=== PATIENT | male | born 1960 | race Caucasian/White ===

== ENCOUNTER 2018-10-19 08:24 | Day surgery (SDC) | payer OTHER ==
[~2018-10-19] VITALS: Ht 182.9 cm; Wt 88.8 kg
[~2018-10-19 08:24] MED LIST: DIAZ10 PO; HYDACE5 PO; NAPR550 PO; OXYC5 PO; RXHYDMOR2 PO
--- NOTE | 2018-10-19 09:10 | NUR ---
Ambulatory in Day Surgery History, Chart, Medications and Allergies reviewed before start of procedure.Patient confirms NPO status and agrees with scheduled surgery. Patient states colon prep results clear. STUDENT RN ASSISTING IN PREOPERATIVE CARE. AGREE WITH HER CHARTING AND CARE
--- NOTE | 2018-10-19 10:24 | NUR ---
10/19/18 Nery Freire History, Chart, Medications and Allergies reviewed before start of procedure. Patient confirms NPO status and agrees with scheduled surgery. PATIENT DETERMINED TO BE ASA APPROPRIATE FOR PROPOFOL SEDATION PRIOR TO START OF PROCEDURE BY DR. BROWN. 3-LEAD EKG REVIEWED WITH PHYSICIAN PRIOR TO START OF PROCEDURE. MONITOR INTACT WITH CONTINUOUS PULSE OXIMETRY AND INTERMITTENT BP.
== END 2018-10-19 22:45 | disposition home or self-care (01) ==
LOC: ORSCMMR 08:24 → ORD 09:30 → ORSCMMR 22:45
PROVIDERS: Internal Medicine Gastroenterology
PROC: 0DBM8ZX Excision of Descending Colon, Via Natural or Artificial Opening Endoscopic, Diagnostic (ICD-10-PCS; principal; 2018-10-19 09:30)
PROC: 0DBN8ZX Excision of Sigmoid Colon, Via Natural or Artificial Opening Endoscopic, Diagnostic (ICD-10-PCS; principal; 2018-10-19 09:30)
DX: Z12.11 Encounter for screening for malignant neoplasm of colon (principal); D12.4 Benign neoplasm of descending colon; K63.5 Polyp of colon; I10 Essential (primary) hypertension
CPT/HCPCS: 88305; J2704; J7120

== ENCOUNTER 2019-02-28 14:56 | Inpatient (IN) | payer OTHER ==
[~2019-02-28] VITALS: Ht 182.9 cm; Wt 86.7 kg
[2019-02-28 15:42] LABS: BASOPHILS ABSOLUTE AUTO 0.09 K/mm3 (0.00-0.23); BASOPHILS PERCENT AUTO 1 % (0-2); EOSINOPHILS ABSOLUTE AUTO 0.13 K/mm3 (0.00-0.68); EOSINOPHILS PERCENT AUTO 1 % (0-6); Hematocrit 49.4 % (37.0-53.0); Hemoglobin 16.6 g/dL (13.5-17.5); IMMATURE GRAN ABSOLUTE AUTO 0.02 K/mm3 (0.00-0.10); IMMATURE GRAN PERCENT AUTO 0 % (0-1); LYMPHOCYTES PERCENT AUTO 36 % (21-46); MONOCYTES PERCENT AUTO 8 % (4-13); Mean Corpuscular HGB 31.1 pg (26.0-34.0); Mean Corpuscular HGB Conc 33.6 g/dL (31.5-36.5); Mean Corpuscular Volume 93 fL (80-100); Mean Platelet Volume 10.1 fL (9.1-12.4); NEUTROPHILS ABSOLUTE AUTO 5.21 K/mm3 (1.96-9.15); NEUTROPHILS PERCENT AUTO 54 % (41-73); Platelet Count 241 K/mm3 (150-400); RDW Coefficient Variation 13.4 % (11.7-14.2); RDW Standard Deviation 45.9 fL (35.1-46.3); Red Blood Cell Count 5.34 M/mm3 (4.30-5.90); White Blood Cell Count 9.75 K/mm3 (4.00-11.30)
[2019-02-28 16:03] LABS: Alanine Aminotransfer (ALT/SGP 36 U/L (12-78); Albumin/Globulin Ratio 1.1 (0.8-1.8); Alk Phos 77 U/L (50-136); Anion Gap 6 mmol/L (6-16); Aspartate Aminotrans (AST/SGOT 16 U/L (12-37); Bilirubin, Total 0.5 mg/dL (0.1-1.0); Blood Urea Nitrogen 23 mg/dL (8-24); Bun/Creatinine Ratio 22.1 (12.0-20.0); CO2, Blood 23 mmol/L (21-32); Calcium, Blood 9.3 mg/dL (8.5-10.1); Chloride, Blood 112 mmol/L (98-108); Creatinine, Blood 1.04 mg/dL (0.60-1.20); Globulin, Blood 3.5 g/dL (2.2-4.0); Glomerular Filtration Rate >60 (60-); Glucose, Blood 106 mg/dL (70-99); Potassium, Blood 4.6 mmol/L (3.5-5.5); Sodium, Blood 141 mmol/L (136-145); Total Protein, Blood 7.5 g/dL (6.4-8.2); Troponin I 0.044 ng/mL (0.000-0.040)
--- NOTE | 2019-02-28 21:03 | NUR ---
PCU ADMIT PT BROUGHT TO PCU RM 05 BY KIRA FROM THE ER @1945. PT ABLE TO STAND AND INDEPENDENTLY AMBULATE FROM [facility] TO PCU BED. PT A&O X4. MONITOR SHOWS AFIB, HR 130'S W/ RANGE OF 110-175. PT BROUGHT TO UNIT W/ CARDIZEM GTT INFUSING @ 10. WILL CONTINUE TO MONITOR AND PROVIDE CARE.
--- NOTE | 2019-03-01 04:22 | NUR ---
SHIFT SUMMARY PT A&O X4. VSS. MONITOR SHOWS AFIB, HR 90-120 W/ CARDIZEM GTT @ 10 ML/HR. PT NOT SLEEPING THIS SHIFT W/ REPORTS OF BREATHING CONCERNS. LUNG SOUNDS CLEAR. SPO2 > 92% ON RA. RR EVEN AND UNLABORED. PT REPORTS "VOMITING LUNG FLUID" IN WHICH PT THEN REPORTS CLEAR MUCUS IN TISSUES W/ NO ACTUAL EMESIS. PT SITTING UP IN BED. SLEEP AID INTERVENTIONS SUCH DIMMING LIGHTS, PLAYING SOFT MUSIC, OR HOT TEA REFUSED BY PT W/ PT STATING "NO IT'S OKAY." TRACE EDEMA TO BILAT FEET. ECHO TO BE DONE TODAY. WILL CONTINUE TO MONITOR AND PROVIDE CARE UNTIL REPORT OFF TO DAY SHIFT RN.
--- NOTE | 2019-03-01 18:14 | NUR ---
SHIFT SUMMARY PT A&Ox4. CALM AND COOPERATIVE WITH CARE. PT RESTING IN BED DURING SHIFT. UP IND IN ROOM. PT DENIES PAIN, SOB AND NAUSEA DURING SHIFT. PER TELE AFIB AVERAGING 100'S, PT ON CARDIZEM GTT AT 10MG/HR AND STARTED ON ORAL CARDIZEM THIS AFTERNOON. ELEVATED TROPS, TRENDING DOWN THIS AFTERNOON. CARDIOLOGY CONSULTED, DR MORGAN SPOKE WITH DR ROMERO. PT DENIES SOB, > SPO2 94%. PT DENIES NAUSEA, HAS GOOD APPETITE. PT RECEIVING IV LAXIS. HR ELEVATED. OTHER VSS. NO OTHER ACUTE CHANGES NOTED DURING SHIFT. WILL CONTINUE TO MONITOR UNTIL REPORT GIVEN TO ONCOMING RN.
--- NOTE | 2019-03-01 20:52 | NUR ---
PATIENT HR CONTINUES TO BE 110-120'S INCREASED DILTIAZAM DRIP TO 15MG/HR. BP STABLE. PATIENT DENIES ANY PAIN OR NEEDS.
--- NOTE | 2019-03-02 05:37 | NUR ---
PHARMACIST HAZEL CALLED AND ASKED THAT I DOUBLE VERIFIED DILTIAZEM DRIP. VERIFIED WITH PHARMACIST OVER PHONE AND WITH DINAH KENNEDY IN PERSON THAT LABS MATCHED FOR PATIENT SAFETY.
--- NOTE | 2019-03-02 05:39 | NUR ---
PATIENT ON DILTIAZEM AT 10 MG NOW DUE TO SLIGHT DROP IN BP. PATIENT TOLERATING WELL. HR 90-110'S. PATIENT NPO. DENIES ANY PAIN OR NEEDS. CALL LIGHT REMAINS WITH IN REACH. PATIENT MOVES AROUND INDEPENDENT IN BED.
--- NOTE | 2019-03-02 11:10 | NUR ---
CALLED DR MCCABE TO CLARIFY HEPARIN ORDERS, NO BOLUS NEEDED. WILL CONTINUE TO MONITOR.
[2019-03-02 11:51] LABS: International Normalized Ratio 1.08; Prothrombin Time Results 11.4 Sec (9.7-11.5)
--- NOTE | 2019-03-02 16:05 | NUR ---
PT STARTED ON TOPROL XL PER ORDERS AT 1400, STOPPED CARDIZEM AT 1600 PER ORDERS. TELE AFIB 90-100, WILL CONTINUE TO MONITOR.
--- NOTE | 2019-03-02 18:36 | NUR ---
SHIFT SUMMARY PT A&Ox4. CALM AND COOPERATIVE WITH CARE. PT RESTING IN BED DURING SHIFT. UP TO BATHROOM IND. PT DENIES PAIN, SOB AND NAUSEA T/O SHIFT. SPO2 >92% ON RA. DR COTTO AT BEDSIDE THIS AM. NEW ORDER TO START HEPARIN DRIP WITH NO BOLUS PER DR MORGAN, ADMINISTRATION DELAY WITH ISSUE IN STARTING NEW IV. PT STARTED ON TOPROL XL PO THIS AFTERNOON, PER ORDERS CARDIZEM GTT D/C 2 HOURS AFTER TOPROL XL ADMINISTERED. TELE IN AFIB AVERAGING 90-100'S. VSS. NO OTHER ACUTE CHANGES NOTED. PLAN TO BE NPO AT MIDNIGHT FOR ANGIO, GABBY AND CARDIOVERSION TOMORROW. WILL CONTINUE TO MONITOR UNTIL REPORT GIVEN TO ONCOMING TO RN.
--- NOTE | 2019-03-02 22:47 | NUR ---
UPDATE PATIENT RESTING IN BED WATCHING TV AND TALKING ON THE PHONE. PATIENT DENIES ANY CHEST PAIN OR PAIN AT THIS TIME. PATIENT AWARE HE IS TO BE NPO AT 2330 FOR PROCEDURE IN THE AM. HEPARIN GTT RUNNING PER ORDERS. WILL CONTINUE TO MONITOR PATIENT.
[2019-03-03 04:13] LABS: BASOPHILS ABSOLUTE AUTO 0.11 K/mm3 (0.00-0.23); BASOPHILS PERCENT AUTO 1 % (0-2); EOSINOPHILS PERCENT AUTO 2 % (0-6); Hematocrit 46.4 % (37.0-53.0); Hemoglobin 15.7 g/dL (13.5-17.5); IMMATURE GRAN ABSOLUTE AUTO 0.03 K/mm3 (0.00-0.10); IMMATURE GRAN PERCENT AUTO 0 % (0-1); LYMPHOCYTES ABSOLUTE AUTO 4.48 K/mm3 (0.84-5.20); LYMPHOCYTES PERCENT AUTO 37 % (21-46); MONOCYTES ABSOLUTE AUTO 1.15 K/mm3 (0.16-1.47); MONOCYTES PERCENT AUTO 9 % (4-13); Mean Corpuscular HGB 30.8 pg (26.0-34.0); Mean Corpuscular HGB Conc 33.8 g/dL (31.5-36.5); Mean Corpuscular Volume 91 fL (80-100); Mean Platelet Volume 10.4 fL (9.1-12.4); NEUTROPHILS PERCENT AUTO 51 % (41-73); Platelet Count 220 K/mm3 (150-400); RDW Coefficient Variation 13.2 % (11.7-14.2); White Blood Cell Count 12.17 K/mm3 (4.00-11.30)
[2019-03-03 04:46] LABS: Anion Gap 6 mmol/L (6-16); Blood Urea Nitrogen 29 mg/dL (8-24); Bun/Creatinine Ratio 28.7 (12.0-20.0); CHOL/HDL RATIO 3.1; CO2, Blood 27 mmol/L (21-32); Calcium, Blood 8.8 mg/dL (8.5-10.1); Chloride, Blood 106 mmol/L (98-108); Cholesterol 118 mg/dL (50-200); Creatinine, Blood 1.01 mg/dL (0.60-1.20); Glomerular Filtration Rate >60 (60-); Glucose, Blood 101 mg/dL (70-99); HDL Cholesterol 38 mg/dL (>39); LDL/HDL RATIO 1.7; Low Density Lipoprotein Chol 65 mg/dL (0-110); Magnesium, Blood 1.9 mg/dL (1.6-2.4); Potassium, Blood 4.1 mmol/L (3.5-5.5); Sodium, Blood 139 mmol/L (136-145); Triglycerides 74 mg/dL (30-160); Very Low Density Lipoprot Chol 14 mg/dL (6-32)
--- NOTE | 2019-03-03 06:46 | NUR ---
UPDATE PATIENT'S HEART RATE STARTING TO TREND IN THE 120'S TOUCHING UP TO THE 130'S. DR CALVO AWARE AND ORDERS RECIEVED.
--- NOTE | 2019-03-03 06:48 | NUR ---
SHIFT SUMMARY PATIENT PLEASENT AND COOPERATIVE THROUGHOUT THE NIGHT. PATIENT INDEPENDENT IN ROOM. PATIENT APPEARED TO SLEEP WELL THROUGHOUT THE NIGHT. PATIENT'S AT APPROX 0400 PATIENT'S HEART RATE STARTED TO TOUCH UP TO THE ONE-TEENS. NOW PATIENT'S HEART RATE IN THE 120'S TOUCHING UP TO THE 130'S. DR AWARE. PATIENT CURRENTLY APPEARS TO BE SLEEPING WELL. HEPARIN GTT RUNNING PER ORDERS. WILL CONTINUE TO MONITOR PATIENT AND REPORT TO ONCOMING RN.
--- NOTE | 2019-03-03 07:46 | NUR ---
NURSING PCU DAYSHIFT: Assumed care of pt at approx 0700. A/O, pleasant, cooperative w/care. Denies any pain/discomfort at rest. Skin is intact w/no breakdown noted. Ambulates independently and w/o difficulty. Tele in place, afib w/HR 110-120 at rest and 140's while awake, no c/o CP/pressure, BP stable, no noted edema. L/S cta t/o, O2 sat upper 90's on RA, denies dyspnea, no noted cough. Abd SNT, BT+, voiding w/o difficulty per pt. PIV x2, hep gtt infusing at 16u/kg/hr at start of shift. HC staff at bedside to xfer to HC for planned procedure of aniogram, GABBY, and possible cardioversion. Pt denied any questions/needs at time of xfer, no s/s of acute distress at that time. Awaiting pt return to unit.
--- NOTE | 2019-03-03 17:35 | NUR ---
NURSING PCU DAYSHIFT SUMMARY: Pt to HC for for angio, GABBY, and cardioversion this a.m. Returned to room post procedure, recovered as per protocol. R radial site w/TR band and wrist board in place upon arrival. Site remained stable w/no bleed or hematoma noted t/o recovery. TR band removed and tegaderm placed this afternoon. Pt remains NSR w/no c/o CP/pressure. Noted ST segment elevation w/T wave depression, television anchor aware of current rhythm, post procedure EKG completed in HC. Family at bedside intermittently t/o shift. Update provided, plan of care discussed. Pt and family deny any questions/needs, cont to monitor until rpt is given to NOC RN.
[2019-03-04 04:18] LABS: BASOPHILS ABSOLUTE AUTO 0.09 K/mm3 (0.00-0.23); BASOPHILS PERCENT AUTO 1 % (0-2); EOSINOPHILS ABSOLUTE AUTO 0.26 K/mm3 (0.00-0.68); EOSINOPHILS PERCENT AUTO 2 % (0-6); Hematocrit 45.9 % (37.0-53.0); Hemoglobin 15.6 g/dL (13.5-17.5); IMMATURE GRAN ABSOLUTE AUTO 0.02 K/mm3 (0.00-0.10); IMMATURE GRAN PERCENT AUTO 0 % (0-1); LYMPHOCYTES ABSOLUTE AUTO 4.65 K/mm3 (0.84-5.20); LYMPHOCYTES PERCENT AUTO 41 % (21-46); MONOCYTES ABSOLUTE AUTO 0.98 K/mm3 (0.16-1.47); MONOCYTES PERCENT AUTO 9 % (4-13); Mean Corpuscular HGB 30.6 pg (26.0-34.0); Mean Corpuscular Volume 90 fL (80-100); Mean Platelet Volume 11.2 fL (9.1-12.4); NEUTROPHILS ABSOLUTE AUTO 5.25 K/mm3 (1.96-9.15); NEUTROPHILS PERCENT AUTO 47 % (41-73); Platelet Count 212 K/mm3 (150-400); RDW Coefficient Variation 13.2 % (11.7-14.2); RDW Standard Deviation 44.2 fL (35.1-46.3); Red Blood Cell Count 5.09 M/mm3 (4.30-5.90); White Blood Cell Count 11.25 K/mm3 (4.00-11.30)
[2019-03-04 04:34] LABS: Anion Gap 7 mmol/L (6-16); Blood Urea Nitrogen 31 mg/dL (8-24); Bun/Creatinine Ratio 29.8 (12.0-20.0); CO2, Blood 27 mmol/L (21-32); Calcium, Blood 8.7 mg/dL (8.5-10.1); Chloride, Blood 105 mmol/L (98-108); Creatinine, Blood 1.04 mg/dL (0.60-1.20); Glomerular Filtration Rate >60 (60-); Glucose, Blood 93 mg/dL (70-99); Potassium, Blood 4.2 mmol/L (3.5-5.5); Sodium, Blood 139 mmol/L (136-145)
--- NOTE | 2019-03-04 07:19 | NUR ---
SHIFT SUMMARY PATIENT PLEASENT AND COOPERATIVE THROUGHOUT THE NIGHT. PATIENT APPEARED TO SLEEP WELL. PATIENT INDEPENDENT IN ROOM. EKG OBTAINED THIS AM. HEPARING GTT RUNNING PER ORDERS. DR CALVO CURRENTLY IN ROOM SPEAKING WITH PATIENT. REPORT GIVEN TO ONCOMING RN.
--- NOTE | 2019-03-04 08:15 | NUR ---
INITIAL ASSESSMENT: PATIENT SITTING UP ON THE EDGE OF THE BED EATING BREAKFAST. PT IS ALERT AND ORIENTED. PT DENIES CHEST PAIN AND SOB AT THIS TIME. HRR, SINUS RHYTHM IN THE 80S PER TELEMETRY. LS CTA, BIOX WNL ON RA. BT+. PPP. NO EDEMA NOTED. VSS. AM MEDS GIVEN AT THIS TIME, SWALLOWED WHOLE WITH A SIP OF WATER WITHOUT DIFFICULTY. DR. SCHERER WAS AT THE BEDSIDE DURING SHIFT CHANGE/REPORT. SHE DISCUSSED WITH THE PATIENT SHE WOULD LIKE TO TURN OFF HEPARIN GTT AND START XARELTO. HEP GTT TURNED OFF. PT SEEMS TO BE SLIGHTLY ANXIOUS AFTER HIS CONVERSATION WITH DR. VALDEZ. HE STATES, "I HAVE ALOT TO THINK ABOUT, IT'S OVERWHELMING." I TALKED WITH THE PATIENT ABOUT THE MEDICATIONS THAT I WAS GIVING. I ALSO OFFERED TO DISCUSS THE [employer] LIFE VEST WITH THE PATIENT, PT STATES HE IS TOO OVERWHELMED AND WILL MAYBE TALK LATER. PATIENT DENIES NEEDS AT THIS TIME. CALL LIGHT IN REACH, WILL CONTINUE TO MONITOR.
--- NOTE | 2019-03-04 11:30 | NUR ---
ASSESSMENT: ASSESSMENT UNCHANGED FROM THIS AM. VSS. PT IS RESTING IN BED. CALL PLACED TO DR. CALVO. SHE HAS DECREASED PATIENTS DAILY DOSE OF METOPROLOL AND THE AM DOSE WAS ALREADY ADMINISTERED. PT'S BLOOD PRESSURE IS 111/76. MD WOULD LIKE TO HOLD OFF ON GIVING DOSE OF ENTRESTO UNTIL THIS EVENING. I DISCUSSED THE [employer] LIFE VEST WITH THE PATIENT AGAIN. HE VOICES CONCERN ABOUT THE COST OF THE LIFE VEST AND CONCERN HIS INSURANCE WILL NOT COVER THE COST OF THE LIFE VEST. I TOLD THE PATIENT I WOULD TALK WITH CARE MANAGEMENT TO TRY AND DETERMINE THE COST AND/OR COVERAGE FOR THE [employer] LIFE VEST.
--- NOTE | 2019-03-04 16:00 | NUR ---
ASSESSMENT UNCHANGED FROM AM ASSESSMENT. PT IS RESTING COMFORTABLY IN BED WATCHING TV. DR. MORGAN HERE TO SEE THE PATIENT,SEE NEW ORDERS. PT DENIES OTHER NEEDS AT THIS TIME. CALL LIGHT IN REACH, WILL CONTINUE TO MONITOR.
--- NOTE | 2019-03-04 21:00 | NUR ---
CARE ASSUMPTION PT A&O X4. INDEPENDENT IN ROOM. VSS. PT STILL CONTEMPLATING LIFE VEST. PT STATES "IT'S BEEN A LOT OF INFORMATION. I DON'T KNOW IF I BELIEVE IT." PT ALSO STATES "I'VE LIVED A GOOD LIFE. WHAT'S ONE DAY AT HOME WITHOUT A LIFE VEST?" TIME SPENT DISCUSSING SITUATION WITH PT AND PROPER MEASURES FOR SAFE DISCHARGE. PT AGREEABLE. WILL CONTINUE TO MONITOR AND PROVIDE CARE.
--- NOTE | 2019-03-05 05:09 | NUR ---
SHIFT SUMMARY PT MEDICAL W/ TELE STATUS. A&O X4. SLEEP TEST COMPLETE AT APPROX 0500 THIS AM. PT STATES "I WAS ABLE TO SLEEP GOOD YOU CAN IN A HOSPITAL." PT VERY RELAXED UPON REASSESSMENT THIS AM, BP A LITTLE LOWER THIS AM, OTHERWISE VSS. WILL CONTINUE TO MONITOR AND PROVIDE CARE UNTIL REPORT OFF TO DAY SHIFT RN.
--- NOTE | 2019-03-05 07:50 | NUR ---
INITIAL ASSESSMENT: PATIENT RESTING IN BED WITH HOB ELEVATED. PT IS ALERT AND ORIENTED. PT DENIES CHEST PAIN AND SOB AT THIS TIME. HRR, SR WITH FIRST DEGREE BLOCK IN THE 80S PER TELEMETRY-NO EVENTS OFVERNIGHT. LS CTA, BIOX WNL ON RA. BT+. PPP. NO EDEMA PRESENT AT THIS TIME. RIGHT RADIAL SIDE WITH OPSITE DRESSING, CDI NO OOZING NOTED. ARM BOARD IN PLACE. VSS. PT EATING BREAKFAST. DENIES OTHER NEEDS AT THIS TIME. CALL LIGHT IN REACH. WILL CONTINUE TO MONITOR.
--- NOTE | 2019-03-05 08:15 | NUR ---
INITIAL ASSESSMENT: PT IS RESTING IN BED ON HIS LEFT SIDE. PT IS AWAKE AND ORIENTED. PT DENIES PAIN OR SOB AT THIS TIME. HHH, NSR IN THE 80S PER TELEMETRY. BIOX WNL ON RA. BT+.PPP. NO EDEMA PRESENT AT THIS TIME. PTS BLOOD PRESSURE IS LOW AT THIS TIME 98/51. I TALKED WITH THE PATIENT ABOUT GETTING OOB AND MOVING AROUND MORE TODAY. I TALKED WITH HIM ABOUT GETTING UP AND WALKING AROUND IN HIS ROOM. ALSO PERFROMING HIS ADL'S LIKE HE WOULD AT HOME. I WILL COME BACK IN ABOUT AN HOUR AND RECHECK HIS BLOOD PRESSURE AFTER HE HAS BEEN UP AND MOVING AROUND. I ALSO DISCUSSED WITH THE PATIENT I WOULD BE FAXING THE ORDER FOR HIS LIFE VEST TODAY. ONCE THE LIFE VEST IS AVAILABLE, PER DR. MORGAN THE PT MAY BE ABLE TO GO HOME. PT VERBALIZES UNDERSTANDING. HE DENIES OTHER NEEDS AT THIS TIME. CALL LIGHT IN REACH. WILL CONTINUE MONITOR.
--- NOTE | 2019-03-05 08:42 | NUR ---
AM MEDS GIVEN AT THIS TIME, SWALLOWED WHOLE WITH A SIP OF WATER WITHOUT DIFFICULTY. PT IS INQUIRING ABOUT BEING DISCHARGED TODAY, I DISCUSSED WITH HIM IF THE MD ISN'T HERE IN ABOUT AN HOUR I WILL GIVE HER A CALL AND SEE IF THATS THE PLAN. PT DENIES OTHER NEEDS AT THIS TIME. CALL LIGHT IN REACH, WILL CONTINUE TO MONITOR.
--- NOTE | 2019-03-05 09:23 | NUR ---
BLOOD PRESSURE RECHECKED. 139/90. AM MEDS GIVEN AT THIS TIME. PT IS SITTING UP ON THE EDGE OF THE BED. DR. MORGAN AT BEDSIDE. NO NEW ORDRES AT THIS TIME. WILL GIVE MD UPDATE ON LIFE VEST APPROVAL. PT DENIES OTHER NEEDS AT THIS TIME. WILL CONTINUE TO MONITOR.
--- NOTE | 2019-03-05 10:40 | NUR ---
AMELIA FLETCHER [facility] CALLED AND TOLD ME THEY RECIEVED THE PATIENTS CHART NOTES AND ORDER FOR LIFE VEST. HE TOLD ME THEY HAD ALL THE DOCUMENTATION THEY NEEDED THE INSURANCE JUST NEEDED TIME TO REVIEW PTS DOCUMENTS AND PROVIDE PRIOR AUTHORIZATION. AFTER AUTH IS GIVEN THEY CAN COME AND FIT THE PATIENT FOR THE LIFE VEST SO THAT HE CAN BE DISCHARGE FROM THE HOSPITAL.
--- NOTE | 2019-03-05 16:00 | NUR ---
VSS. PT HAS BEEN AMBULATING IN THE HALLWAY AND IN ROOM. THE ZOLL REP CALLED TO SAY THE INSURANCE IS STILL REVIEWING THE PATIENTS CHART FOR AUTHORIZATION. PT DENIES NEEDS AT THIS TIME. CALL LIGHT IN REACH.
--- NOTE | 2019-03-05 18:51 | NUR ---
PATIENT HAS DONE WELL TOAY. WE ARE JUST WAITING FOR INSURANCE AUTHORIZATION FOR [employer] LIFE VEST. ONCE LIFE VEST IS IN PLACE WE WILL NOTIFY MD FOR DISCHARGE ORDERS. NO ACUTE CHANGES THIS SHIFT. REPORT GIVEN TO DEB VACA RN.
--- NOTE | 2019-03-05 20:06 | NUR ---
CARE ASSUMPTION PT A&O X4. VSS. PT INDEPENDENT IN ROOM. PT AWAITING LIFE VEST FOR DISCHARGE HOME. WILL CONTINUE TO MONITOR AND PROVIDE CARE.
--- NOTE | 2019-03-06 05:46 | NUR ---
SHIFT SUMMARY PT MEDICAL W/ TELE STATUS. PT A&O X4. VSS. DISCHARGE ORDERS IN PLACE FOR PT DISCHARGE HOME ONCE PT SET UP W/ LIFE VEST. NO EVENTS OR CHANGES THIS SHIFT. WILL CONTINUE TO MONITOR AND PROVIDE CARE UNTIL REPORT OFF TO DAY SHIFT RN.
--- NOTE | 2019-03-06 09:05 | NUR ---
PT UP IN CHAIR, WATCHING TV. REPORT REC'D FROM NOC RN. PT WAS ASLEEP SO DID NOT WAKE FOR BEDSIDE REPORT. PT IS PLEASANT AND SOCIAL. INDEP IN RM. VSS ALTHOUGH BP JUST UNDER PARAMETERS FOR METOPROLOL, WILL HOLD FOR NOW, REASSESS LATER. ASSESS COMPLETE. CONT TO MONITOR. DISCUSSED PROBABLE DISCHARGE FOR TOMORROW AFTER LIFEVEST PLACED.
--- NOTE | 2019-03-06 17:46 | NUR ---
DEB KENNEDY ASSUMING CARE FOR THE REST OF THE SHIFT, THEN T/O NOC. PT UP AROUND RM INDEP. VSS T/O SHIFT. TELE W/O EVENTS. NO C/O OF CHEST PAIN. AWAITING INSURANCE APPROVAL AND PLACEMENT OF LIFEVEST, HOPEFULLY TOMORROW. DC ORDERS IN AWAITING PLACEMENT OF VEST. NO OTHER ACUTE CHANGES NOTED THIS SHIFT.
--- NOTE | 2019-03-06 18:27 | NUR ---
CARE ASSUMPTION PT A&O X4. VSS. INDEPENDENT IN ROOM. AWAITING DISCHARGE HOME W/ LIFE VEST.
--- NOTE | 2019-03-07 05:59 | NUR ---
SHIFT SUMMARY NO CHANGES OR EVENTS THIS SHIFT. PT A&O X4. VSS. INDEPENDENT IN ROOM. PT AWAITING DISCHARGE HOME W/ LIFE VEST. WILL CONTINUE TO MONITOR AND PROVIDE CARE UNTIL REPORT OFF TO DAY SHIFT RN.
[2019-03-07] MEDS ORDERED: FURO20 PO (11:08)
[2019-03-07] MEDS ORDERED: METO25ER PO (11:08)
[2019-03-07] MEDS ORDERED: XARELTO15 MG PO (11:11)
[2019-03-07] MEDS ORDERED: ENTRESTO 24 MG1 EACH PO (11:12)
[2019-03-07] MEDS ORDERED: SENN187 PO (11:13)
--- NOTE | 2019-03-07 17:00 | NUR ---
SHIFT SUMMARY PT ALERT AND ORIENTED. VS STABLE. DISCHARGE INSTRUCTIONS PROVIDED TO PATIENT THIS AM. NEW MEDICATIONS EDUCATED TO PT. PT GETTING FITTED WITH LIFE VEST AT THIS TIME AND THEN PT TO BE TAKEN OUT BY WHEELCHAIR.
== END 2019-03-07 18:06 | disposition home or self-care (01) | DRG 280 ==
LOC: ER 14:56 → PCU 15:57
PROVIDERS: Internal Medicine; Internal Medicine Cardiovascular Disease; Physician Assistant; ADMIT Hospitalist
PROC: B24BZZ4 Ultrasonography of Heart with Aorta, Transesophageal (ICD-10-PCS; principal; 2019-03-03)
PROC: 5A2204Z Restoration of Cardiac Rhythm, Single (ICD-10-PCS; 2019-03-03)
PROC: B2111ZZ Fluoroscopy of Multiple Coronary Arteries using Low Osmolar Contrast (ICD-10-PCS; 2019-03-03)
DX: I48.0 Paroxysmal atrial fibrillation (principal); I21.4 Non-ST elevation (NSTEMI) myocardial infarction; I50.21 Acute systolic (congestive) heart failure; I42.9 Cardiomyopathy, unspecified; Z68.26 Body mass index [BMI] 26.0-26.9, adult
CPT/HCPCS: 36415; 71046; 80048; 80053; 80061; 82728; 83735; 84443; 84484; 85025; 85610; 85730; 92960; 93005; 93010; 93312; 93325; 93454; 94762; 96361; 96365; 96376; 99152; 99153; 99285-25; A9270; C1769; C1894; C8929; J1644; J1940; J2250; J3010; J7030; Q9957; Q9967

== ENCOUNTER → 2019-07-18 | Outpatient (CLI) | payer OTHER ==
[~2019-07-18] MED LIST changes: +ENTRESTO 24 MG1 EACH PO; +FURO20 PO; +METO25ER PO; +SENN187 PO; +XARELTO15 MG PO
[2019-07-21 04:07] LABS: CHLAMYDIA TRACHOMATIS, NAA Negative (Negative); NEISSERIA GONORRHOEAE, NAA Negative (Negative)
== END | disposition home or self-care (01) ==
LOC: LAB 12:50 → LAB SHORT 12:50
PROVIDERS: Nurse Practitioner Family
DX: Z20.2 Contact with and (suspected) exposure to infections with a predominantly sexual mode of transmission (principal)
CPT/HCPCS: 87491; 87591

== ENCOUNTER → 2021-06-11 | Outpatient (CLI) | payer OTHER ==
[~2021-06-11] MED LIST changes: +ACET325 PO; +AMOX875 PO; +BISA10S PR; +FAMO20 PO; +FURO40 PO; +Floxin10 ML LEFTEAR; +LISI5 PO; +ONDA4 PO; +POTA10T PO; +PROBIOTIC & AC1 EACH PO; +XARELTO20 MG PO
[2021-06-13 02:10] LABS: CHLAMYDIA TRACHOMATIS, NAA Negative (Negative)
== END | disposition home or self-care (01) ==
LOC: LAB SHORT 10:15
PROVIDERS: Student in an Organized Health Care Education/Training Program
DX: Z11.3 Encounter for screening for infections with a predominantly sexual mode of transmission (principal)
CPT/HCPCS: 87491; 87591

== ENCOUNTER 2024-09-06 11:59 | Day surgery (SDC) | payer OTHER ==
[2024-09-06] VITALS (9 sets, daily range): BP systolic 104–143; BP diastolic 79–120
[2024-09-06] MEDS ORDERED: NS 1,000 ML IV ONE (12:03)
[2024-09-06] MEDS ORDERED: Benzocaine Oral Spray 0.5ML UD ONE (12:09)
[2024-09-06] MEDS ORDERED: Metoprolol Succinate 25 MG TABCR PO ONE (12:40)
--- NOTE | 2024-09-06 12:54 | NUR ---
SUCCESSFUL CARDIOVERSION/GABBY, POST ECHO IN PROGRESS, VSS, RASS 0 NOW FROM -2 EARLIER. DENIES NEEDS, EXCEPT "HUNGRY", ORAL METOPROLOL IN PROGRESS.
--- NOTE | 2024-09-06 13:44 | NUR ---
EKG PERFORMED, ZIO PATCH PLACED, IV REMOVED, PATIENT DENIED QUESTIONS/CONCERNS, GIVEN DISCHARGE INSTRUCTIONS, VERBALIZE UNDERSTANDING, DISCUSSED NEW MEDS, ZIO PATCH CARE, AND F/U WITH DR. CHIANG, TAKEN BY W/C TO PATIENT ENTRANCE AT PRESENT, AWAITING RIDE.
[2024-09-06] MEDS ORDERED: Propofol 10mg/ml 20 ml Vial (Procedural) IV ONE (17:28)
== END 2024-09-06 23:00 | disposition home or self-care (01) ==
LOC: MHTC 11:59
DX: I48.91 Unspecified atrial fibrillation (principal); I25.10 Atherosclerotic heart disease of native coronary artery without angina pectoris; R73.03 Prediabetes; I11.0 Hypertensive heart disease with heart failure; I50.9 Heart failure, unspecified; I42.9 Cardiomyopathy, unspecified; Z79.899 Other long term (current) drug therapy; Z79.01 Long term (current) use of anticoagulants
CPT/HCPCS: 92960; 93005; 93010; 93246; 93306; 93312; 93325; A9270; J2704; J7030